=== PATIENT | female | born 1975 | race Caucasian/White ===

== ENCOUNTER 2023-10-09 12:44 | Emergency (ER) | payer MEDICAID ==
[~2023-10-09] VITALS: Ht 152.4 cm; Wt 59.0 kg
[2023-10-09 12:50] VITALS: BP_SYST 133; PULSE 77; RESP 18; TEMP 98.2; O2SAT 97
[2023-10-09 13:27] LABS: BILIRUBIN,URINE NEGATIVE (NEGATIVE); BLOOD, URINE 1+ (NEGATIVE); CLARITY/URINE CLEAR (CLEAR); COLOR,URINE YELLOW (YELLOW); GLUCOSE,URINE NEGATIVE (NEGATIVE); KETONES,URINE NEGATIVE (NEGATIVE); LEUKOCYTE ESTERASE ,URINE 3+ (NEGATIVE); NITRITE, URINE NEGATIVE (NEGATIVE); PROTEIN URINE NEGATIVE (NEGATIVE); UROBILINOGEN,URINE 0.2 (0.2-1.0)
[2023-10-09 13:32] LABS: BASOPHILS % (AUTO) 0.5 % (0.0-2.0); EOSINOPHILS # (AUTO) 0.1 K/uL (0.0-0.4); EOSINOPHILS % (AUTO) 0.8 % (0.0-4.0); HEMATOCRIT 40.5 % (36-48); HEMOGLOBIN 13.9 g/dL (12.0-16.0); LYMPHOCYTES # (AUTO) 1.5 K/uL (1.0-5.5); MEAN CORPUSCULAR HEMOGLOBIN 28 pg (27-31); MEAN CORPUSCULAR HGB CONC 34 % (32-36); MEAN CORPUSCULAR VOLUME 82 fL (79.0-98.0); MONOCYTES # (AUTO) 0.5 K/uL (0.0-1.0); MONOCYTES % (AUTO) 7.1 % (1.7-9.3); NEUTROPHILS # (AUTO) 4.6 K/uL (1.8-7.7); NEUTROPHILS % (AUTO) 68.6 % (40.0-70.0); PLATELET COUNT (AUTO) 315 K/uL (130-430); RED BLOOD CELL COUNT(AUTO) 4.95 MIL/uL (4.2-6.2); RED CELL DISTRIBUTION WIDTH 13.5 % (9.0-15.0); WHITE BLOOD COUNT (AUTO) 6.7 K/uL (4.8-10.8)
[2023-10-09 13:37] LABS: BACTERIA,URINE MODERATE /HPF (None Seen); WBC,URINE 0-3 /HPF (0-3)
[2023-10-09 13:48] LABS: CALCIUM 8.3 mg/dL (8.4-11.0); CREATININE 1.1 mg/dL (0.55-1.30); POTASSIUM 4.3 mmol/L (3.5-5.1)
[2023-10-09] MEDS ORDERED: DOXY100C5 PO (13:50)
[2023-10-09] MEDS: cefTRIAXone 1 GM VIAL IM ONE (14:17)
[2023-10-09 14:18] VITALS: BP_SYST 133; PULSE 77; RESP 18; TEMP 98.2; O2SAT 97
[2023-10-10] MEDS ORDERED: IMI50 PO (10:45)
[2023-10-10] MEDS ORDERED: ONDA-8 TL (10:45)
[2023-10-10] MEDS ORDERED: OMEP40CA20 PO (10:45)
== END 2023-10-09 14:15 | disposition home or self-care (01) ==
LOC: SED 12:44
DX: N73.9 Female pelvic inflammatory disease, unspecified (principal); Z88.1 Allergy status to other antibiotic agents; Z79.899 Other long term (current) drug therapy
CPT/HCPCS: 99284; 80048; 81000; 81001; 85025; 87086; 36415; 96372; 81015; J0696; 87186

== ENCOUNTER 2023-10-10 09:26 | Emergency (ER) | payer MEDICAID ==
[~2023-10-10] VITALS: Ht 167.6 cm; Wt 61.7 kg
[~2023-10-10 09:26] MED LIST: DOXY100C5 PO
[2023-10-10 09:38] VITALS: BP_SYST 132; PULSE 87; RESP 18; TEMP 97.7; O2SAT 98
[2023-10-10] MEDS: KETOROLAC TROMETHAMINE 30 MG VIAL IM ONE (10:23)
[2023-10-10] MEDS: ONDANSETRON 4 MG ODT TAB PO ONE (10:23)
[2023-10-10] MEDS: PANTOPRAZOLE SODIUM 40 MG TAB PO ONE (10:23)
[2023-10-10] MEDS ORDERED: ONDA-8 TL (10:45)
[2023-10-10] MEDS ORDERED: OMEP40CA20 PO (10:45)
[2023-10-10] MEDS ORDERED: IMI50 PO (10:45)
[2023-10-10 10:50] VITALS: BP_SYST 132; PULSE 87; RESP 18; TEMP 97.7; O2SAT 98
== END 2023-10-10 10:49 | disposition home or self-care (01) ==
LOC: SED 09:26
DX: K29.00 Acute gastritis without bleeding (principal); G43.909 Migraine, unspecified, not intractable, without status migrainosus; N73.9 Female pelvic inflammatory disease, unspecified; R10.13 Epigastric pain; R11.10 Vomiting, unspecified; Z88.1 Allergy status to other antibiotic agents; Z79.899 Other long term (current) drug therapy
CPT/HCPCS: 99283; 96372; Q0162; J1885

== ENCOUNTER 2023-11-01 09:31 | Emergency (ER) | payer BC, MEDICAID ==
[~2023-11-01] VITALS: Ht 152.4 cm; Wt 56.7 kg
[~2023-11-01 09:31] MED LIST changes: +IMI50 PO; +OMEP40CA20 PO; +ONDA-8 TL
[2023-11-01 09:38] VITALS: BP_SYST 148; PULSE 71; RESP 18; TEMP 98.3; O2SAT 98
[2023-11-01 10:02] LABS: BASOPHILS % (AUTO) 0.7 % (0.0-2.0); EOSINOPHILS % (AUTO) 0.5 % (0.0-4.0); HEMATOCRIT 39.3 % (36-48); HEMOGLOBIN 13.1 g/dL (12.0-16.0); LYMPHOCYTES # (AUTO) 1.3 K/uL (1.0-5.5); LYMPHOCYTES % (AUTO) 20.1 % (20.5-51.5); MEAN CORPUSCULAR HEMOGLOBIN 27 pg (27-31); MEAN CORPUSCULAR HGB CONC 33 % (32-36); MEAN CORPUSCULAR VOLUME 82 fL (79.0-98.0); MONOCYTES # (AUTO) 0.4 K/uL (0.0-1.0); MONOCYTES % (AUTO) 6.3 % (1.7-9.3); NEUTROPHILS # (AUTO) 4.8 K/uL (1.8-7.7); NEUTROPHILS % (AUTO) 72.4 % (40.0-70.0); PLATELET COUNT (AUTO) 293 K/uL (130-430); RED BLOOD CELL COUNT(AUTO) 4.79 MIL/uL (4.2-6.2); RED CELL DISTRIBUTION WIDTH 13.4 % (9.0-15.0); WHITE BLOOD COUNT (AUTO) 6.7 K/uL (4.8-10.8)
[2023-11-01 10:21] LABS: ANION GAP 11 (5-15); CALCIUM 8.8 mg/dL (8.4-11.0); CARBON DIOXIDE 24 mmol/L (23-29); CHLORIDE 107 mmol/L (98-107); CREATINE KINASE, TOTAL 67 U/L (26-192); CREATININE 0.94 mg/dL (0.55-1.30); GFR AFRICAN AMERICAN 82 mL/min (>90); GFR NON AFRICAN-AMERICAN 68 mL/min (>90); GLUCOSE 108 mg/dL (74-106); POTASSIUM 4.8 mmol/L (3.5-5.1); SODIUM SERUM 142 mmol/L (136-145); UREA NITROGEN, BLOOD 12 mg/dL (8-21)
[2023-11-01 10:24] LABS: PROTHROMBIN TIME 10.3 SECS (9.5-12.5)
[2023-11-01 11:15] VITALS: BP_SYST 121; PULSE 63; RESP 17; TEMP 98.3; O2SAT 97
[2023-11-01 11:18] LABS: FREE T4 (FREE THYROXINE) 1.1 ng/dL (0.6-1.6); THYROID STIMULATING HORMONE 1.76 uIu/mL (0.34-4.82)
== END 2023-11-01 11:14 | disposition home or self-care (01) ==
LOC: SED 09:31
DX: R07.9 Chest pain, unspecified (principal); I10 Essential (primary) hypertension; Z88.8 Allergy status to other drugs, medicaments and biological substances; Z79.899 Other long term (current) drug therapy
CPT/HCPCS: 36415; 71045; 80048; 82550; 84439; 84443; 84484; 85025; 85610; 85730; 93005; 99285

== ENCOUNTER 2023-11-17 11:07 | Emergency (ER) | payer BC ==
[~2023-11-17] VITALS: Ht 157.5 cm; Wt 61.7 kg
[2023-11-17 11:12] VITALS: BP_SYST 124; PULSE 93; RESP 17; TEMP 98.2; O2SAT 98
[2023-11-17 12:16] LABS: COVID19 ANTIGEN SOFIA FIA NEGATIVE (NEGATIVE)
[2023-11-17] MEDS ORDERED: DOXY100T2 PO (12:28)
[2023-11-17] MEDS ORDERED: PRED20TA PO (12:28)
[2023-11-17 12:39] LABS: INFLUENZA TYPE A Negative (NEGATIVE); INFLUENZA TYPE B NEGATIVE (NEGATIVE)
[2023-11-17 12:45] VITALS: BP_SYST 118; PULSE 72; RESP 16; TEMP 98.2; O2SAT 100
== END 2023-11-17 12:45 | disposition home or self-care (01) ==
LOC: SED 11:07
DX: J02.9 Acute pharyngitis, unspecified (principal); J32.9 Chronic sinusitis, unspecified; Z20.822 Contact with and (suspected) exposure to COVID-19; I10 Essential (primary) hypertension; Z88.8 Allergy status to other drugs, medicaments and biological substances; Z79.899 Other long term (current) drug therapy; Z79.2 Long term (current) use of antibiotics
CPT/HCPCS: 36415; 99283

== ENCOUNTER 2023-11-24 11:42 | Emergency (ER) | payer BC ==
[~2023-11-24 11:42] MED LIST changes: +DOXY100T2 PO; +PRED20TA PO
== END 2023-11-24 12:50 | disposition left against medical advice (07) ==
LOC: SED 11:42
DX: R51.9 Headache, unspecified (principal); Z53.21 Procedure and treatment not carried out due to patient leaving prior to being seen by health care provider

== ENCOUNTER 2023-12-14 18:36 | Emergency (ER) | payer BC ==
[~2023-12-14] VITALS: Ht 160 cm; Wt 62.6 kg
[2023-12-14 19:10] VITALS: BP_SYST 127; PULSE 70; RESP 19; TEMP 97.2; O2SAT 100
[2023-12-14 21:20] LABS: INFLUENZA TYPE A Negative (NEGATIVE); INFLUENZA TYPE B NEGATIVE (NEGATIVE)
[2023-12-14] MEDS: IBUPROFEN 600 MG TABLET PO ONE (21:31)
[2023-12-14] MEDS: AMOXICILLIN 500 MG CAPSULE PO ONE (21:31)
[2023-12-14] MEDS ORDERED: IBUP-1969 PO (21:36)
[2023-12-14] MEDS ORDERED: AMOX500C2 PO (21:36)
[2023-12-14] MEDS ORDERED: FLUT16SP16 NS (21:36)
[2023-12-14 21:50] VITALS: BP_SYST 127; PULSE 70; RESP 19; TEMP 97.2; O2SAT 100
== END 2023-12-14 21:50 | disposition home or self-care (01) ==
LOC: SED 18:36
DX: J32.8 Other chronic sinusitis (principal); Z20.822 Contact with and (suspected) exposure to COVID-19; I10 Essential (primary) hypertension; Z79.899 Other long term (current) drug therapy; Z79.2 Long term (current) use of antibiotics; Z88.8 Allergy status to other drugs, medicaments and biological substances
CPT/HCPCS: 36415; 99283

== ENCOUNTER 2024-02-25 13:39 | Emergency (ER) | payer BC ==
[~2024-02-25] VITALS: Ht 162.6 cm; Wt 61.7 kg
[~2024-02-25 13:39] MED LIST changes: +AMOX500C2 PO; +FLUT16SP16 NS; +IBUP-1969 PO
[2024-02-25 13:56] VITALS: BP_SYST 122; PULSE 83; RESP 20; TEMP 97.3; O2SAT 99
[2024-02-25] MEDS: EPINEPHRINE HCL/PF 1 MG/ML AMP IM ONE (14:51)
[2024-02-25] MEDS ORDERED: EPIN0.3P3 IM (15:31)
[2024-02-25 15:40] VITALS: BP_SYST 126; PULSE 81; RESP 18; TEMP 98.2; O2SAT 100
== END 2024-02-25 15:37 | disposition home or self-care (01) ==
LOC: SED 13:39
DX: T78.1XXA Other adverse food reactions, not elsewhere classified, initial encounter (principal); I10 Essential (primary) hypertension; E03.9 Hypothyroidism, unspecified; Z88.8 Allergy status to other drugs, medicaments and biological substances; Z79.899 Other long term (current) drug therapy; Z79.2 Long term (current) use of antibiotics; X58.XXXA Exposure to other specified factors, initial encounter
CPT/HCPCS: 99283; 81025; 96372; J0171